=== PATIENT | female | born 1955 | race Caucasian/White ===

== ENCOUNTER 2021-12-01 20:23 | Emergency (ER) | payer OTHER ==
[~2021-12-01] VITALS: Ht 160 cm; Wt 114.3 kg
[~2021-12-01 20:23] MED LIST changes: -K-Dur20 MEQ PO; -Ondansetron Odt8 MG MM
[2021-12-01 21:05] LABS: BASOPHILS ABSOLUTE AUTO 0.05 K/mm3 (0.00-0.23); BASOPHILS PERCENT AUTO 0 % (0-2); EOSINOPHILS ABSOLUTE AUTO 0.09 K/mm3 (0.00-0.68); EOSINOPHILS PERCENT AUTO 1 % (0-6); IMMATURE GRAN ABSOLUTE AUTO 0.06 K/mm3 (0.00-0.10); IMMATURE GRAN PERCENT AUTO 1 % (0-1); LYMPHOCYTES ABSOLUTE AUTO 1.63 K/mm3 (0.84-5.20); LYMPHOCYTES PERCENT AUTO 15 % (21-46); MONOCYTES ABSOLUTE AUTO 0.65 K/mm3 (0.16-1.47); MONOCYTES PERCENT AUTO 6 % (4-13); Mean Corpuscular HGB 27.5 pg (26.0-34.0); Mean Corpuscular HGB Conc 34.2 g/dL (31.5-36.5); Mean Corpuscular Volume 81 fL (80-100); Mean Platelet Volume 10.2 fL (9.1-12.4); NEUTROPHILS PERCENT AUTO 78 % (41-73); Platelet Count 318 K/mm3 (150-400); RDW Coefficient Variation 14.3 % (11.7-14.2); RDW Standard Deviation 41.7 fL (35.1-46.3); Red Blood Cell Count 4.72 M/mm3 (3.80-5.20); White Blood Cell Count 11.28 K/mm3 (4.00-11.30)
[2021-12-01 21:27] LABS: Alanine Aminotransfer (ALT/SGP 82 U/L (12-78); Albumin, Blood 3.3 g/dL (3.4-5.0); Albumin/Globulin Ratio 0.8 (0.8-1.8); Alk Phos 74 U/L (50-136); Anion Gap 16 mmol/L (6-16); Aspartate Aminotrans (AST/SGOT 42 U/L (12-37); Bilirubin, Total 0.5 mg/dL (0.1-1.0); Blood Urea Nitrogen 12 mg/dL (8-24); Bun/Creatinine Ratio 6.6 (12.0-20.0); CO2, Blood 24 mmol/L (21-32); Calcium, Blood 8.8 mg/dL (8.5-10.1); Chloride, Blood 83 mmol/L (98-108); Creatinine, Blood 1.82 mg/dL (0.40-1.00); Globulin, Blood 3.9 g/dL (2.2-4.0); Glomerular Filtration Rate 28 (60-); Glucose, Blood 107 mg/dL (70-99); Potassium, Blood 2.6 mmol/L (3.5-5.5); Sodium, Blood 123 mmol/L (136-145); Total Protein, Blood 7.2 g/dL (6.4-8.2); Troponin I <0.015 ng/mL (0.000-0.040)
[2021-12-01 22:29] LABS: Magnesium, Blood 1.7 mg/dL (1.6-2.4)
[2021-12-01 23:08] LABS: Source, Urine Clean Catch
[2021-12-01 23:19] LABS: Influenza A, PCR NEGATIVE (NEGATIVE); Influenza B, PCR NEGATIVE (NEGATIVE); Resp Syncytial Virus, PCR NEGATIVE (NEGATIVE); SARS-Cov-2 (COVID-19) PCR, MMC NEGATIVE (NEGATIVE)
[2021-12-01 23:32] LABS: Appearance, Urine Hazy (Clear); Bilirubin, Urine Neg (Neg); Blood, Urine 1+ (Neg); Color, Urine Yellow (P-Yellow); Glucose Qualitative, Urine Neg (Neg); Ketones, Urine Neg (Neg); Leukocyte Esterase, Urine 2+ (Neg); Nitrite, Urine Neg (Neg); Protein, Urine 2+ (Neg); Specific Gravity, Urine 1.025 (1.003-1.022); Urobilinogen, Urine NORM (Normal)
[2021-12-01 23:36] LABS: Amorphous Mod (0-Heavy); Bacteria Few /hpf; Red Blood Cells, Urine 0-2 /hpf (0-2); Squamous Epithelial Cells Few /hpf (Few)
[2021-12-02] MEDS ORDERED: K-Dur20 MEQ PO (01:41)
[2021-12-02] MEDS ORDERED: Ondansetron Odt8 MG MM (01:41)
== END 2021-12-02 02:00 | disposition home or self-care (01) ==
LOC: ER 20:23
PROVIDERS: Emergency Medicine; Physician Assistant
DX: K43.9 Ventral hernia without obstruction or gangrene (principal); E87.6 Hypokalemia; Z88.0 Allergy status to penicillin; Z88.5 Allergy status to narcotic agent; E11.9 Type 2 diabetes mellitus without complications; F17.290 Nicotine dependence, other tobacco product, uncomplicated
CPT/HCPCS: 0241U; 36415; 80053; 81001; 83605; 83735; 84484; 85025; 87086; 93005; 93010; 96365; 96366; 96375; 96376; 99284-25; A9270; J2405; J7030

== ENCOUNTER → 2021-12-01 | Outpatient (CLI) | payer OTHER ==
[~2021-12-01] MED LIST: K-Dur20 MEQ PO; OMEP20ER PO; Ondansetron Odt8 MG MM; Zofran4 MG PO
[2021-12-01 17:46] LABS: BASOPHILS ABSOLUTE AUTO 0.07 K/mm3 (0.00-0.23); BASOPHILS PERCENT AUTO 1 % (0-2); EOSINOPHILS ABSOLUTE AUTO 0.09 K/mm3 (0.00-0.68); EOSINOPHILS PERCENT AUTO 1 % (0-6); Hematocrit 40.1 % (33.0-51.0); IMMATURE GRAN ABSOLUTE AUTO 0.07 K/mm3 (0.00-0.10); IMMATURE GRAN PERCENT AUTO 1 % (0-1); LYMPHOCYTES ABSOLUTE AUTO 1.55 K/mm3 (0.84-5.20); LYMPHOCYTES PERCENT AUTO 12 % (21-46); MONOCYTES ABSOLUTE AUTO 0.73 K/mm3 (0.16-1.47); MONOCYTES PERCENT AUTO 6 % (4-13); Mean Corpuscular HGB 28.2 pg (26.0-34.0); Mean Corpuscular HGB Conc 34.9 g/dL (31.5-36.5); Mean Corpuscular Volume 81 fL (80-100); Mean Platelet Volume 10.3 fL (9.1-12.4); NEUTROPHILS ABSOLUTE AUTO 10.03 K/mm3 (1.96-9.15); NEUTROPHILS PERCENT AUTO 80 % (41-73); Platelet Count 338 K/mm3 (150-400); RDW Coefficient Variation 14.6 % (11.7-14.2); RDW Standard Deviation 42.3 fL (35.1-46.3); Red Blood Cell Count 4.96 M/mm3 (3.80-5.20); White Blood Cell Count 12.54 K/mm3 (4.00-11.30)
[2021-12-01 17:51] LABS: Bun/Creatinine Ratio 6.4 (12.0-20.0); Calcium, Blood 9.9 mg/dL (8.5-10.1); Creatinine, Blood 2.04 mg/dL (0.40-1.00); Potassium, Blood 2.8 mmol/L (3.5-5.5)
== END | disposition home or self-care (01) ==
LOC: LAB SHORT 17:36
PROVIDERS: Physician Assistant Surgical
DX: R42 Dizziness and giddiness (principal); R53.83 Other fatigue
CPT/HCPCS: 80048; 84443; 85025

== ENCOUNTER 2021-12-07 06:57 | Inpatient (IN) | payer OTHER ==
[~2021-12-07] VITALS: Ht 160 cm; Wt 117.6 kg
[~2021-12-07 06:57] MED LIST changes: +K-Dur20 MEQ PO; +Ondansetron Odt8 MG MM
[2021-12-07] MEDS ORDERED: ROSUVASTATIN CA10 MG PO (07:29)
[2021-12-07] MEDS ORDERED: METFORMIN HCL500 M2 PO (07:29)
[2021-12-07] MEDS ORDERED: ZOLOFT50 MG PO (07:29)
[2021-12-07] MEDS ORDERED: Ventolin/Prove6.7 GM INH (07:29)
[2021-12-07] MEDS ORDERED: PLAVIX75 MG PO (07:30)
[2021-12-07] MEDS ORDERED: TRIA50 PO (07:30)
[2021-12-07 07:51] LABS: BASOPHILS ABSOLUTE AUTO 0.06 K/mm3 (0.00-0.23); BASOPHILS PERCENT AUTO 1 % (0-2); EOSINOPHILS ABSOLUTE AUTO 0.15 K/mm3 (0.00-0.68); EOSINOPHILS PERCENT AUTO 2 % (0-6); Hemoglobin 12.6 g/dL (11.5-16.0); IMMATURE GRAN ABSOLUTE AUTO 0.05 K/mm3 (0.00-0.10); IMMATURE GRAN PERCENT AUTO 1 % (0-1); LYMPHOCYTES ABSOLUTE AUTO 1.38 K/mm3 (0.84-5.20); LYMPHOCYTES PERCENT AUTO 17 % (21-46); MONOCYTES ABSOLUTE AUTO 0.68 K/mm3 (0.16-1.47); MONOCYTES PERCENT AUTO 9 % (4-13); Mean Corpuscular HGB 27.5 pg (26.0-34.0); Mean Corpuscular HGB Conc 33.2 g/dL (31.5-36.5); Mean Corpuscular Volume 83 fL (80-100); Mean Platelet Volume 9.9 fL (9.1-12.4); NEUTROPHILS ABSOLUTE AUTO 5.69 K/mm3 (1.96-9.15); NEUTROPHILS PERCENT AUTO 71 % (41-73); Platelet Count 279 K/mm3 (150-400); RDW Coefficient Variation 15.3 % (11.7-14.2); RDW Standard Deviation 46.5 fL (35.1-46.3); Red Blood Cell Count 4.58 M/mm3 (3.80-5.20); White Blood Cell Count 8.01 K/mm3 (4.00-11.30)
[2021-12-07 08:24] LABS: Albumin, Blood 3.1 g/dL (3.4-5.0); Albumin/Globulin Ratio 0.9 (0.8-1.8); Bilirubin, Total 0.4 mg/dL (0.1-1.0); Bun/Creatinine Ratio 4.2 (12.0-20.0); Calcium, Blood 9.1 mg/dL (8.5-10.1); Creatinine, Blood 2.62 mg/dL (0.40-1.00); Globulin, Blood 3.6 g/dL (2.2-4.0); Potassium, Blood 3.1 mmol/L (3.5-5.5); Total Protein, Blood 6.7 g/dL (6.4-8.2)
[2021-12-07 08:56] LABS: Influenza A, PCR NEGATIVE (NEGATIVE); Influenza B, PCR NEGATIVE (NEGATIVE); Resp Syncytial Virus, PCR NEGATIVE (NEGATIVE); SARS-Cov-2 (COVID-19) PCR, MMC NEGATIVE (NEGATIVE)
[2021-12-07 09:27] LABS: Source, Urine Clean Catch
[2021-12-07 09:33] LABS: Appearance, Urine Clear (Clear); Bilirubin, Urine Neg (Neg); Blood, Urine Neg (Neg); Color, Urine Yellow (P-Yellow); Glucose Qualitative, Urine Neg (Neg); Ketones, Urine Neg (Neg); Leukocyte Esterase, Urine Neg (Neg); Nitrite, Urine Neg (Neg); Protein, Urine Neg (Neg); Urobilinogen, Urine NORM (Normal); pH, Urine 6.5 (5.0-8.0)
--- NOTE | 2021-12-07 15:00 | NUR ---
PT ARRIVED TO FLOOR BY GURNEY FROM ED AND ABLE TO STAND AND AMBULATE TO BATHROOM INDEPENDENTLY AND WAS STEADY ON FEET. ANSWERING QUESTIONS FOR HISTORY APPROPRIATELY. DENIES NAUSEA OR PAIN BUT FEELS WEAK AND TIRED.
--- NOTE | 2021-12-07 18:48 | NUR ---
SHIFT SUMMARY PT INDEPENDENT IN ROOM. HAS BEEN SLEEPING MOSTLY SINCE ARRIVAL REPORTING SHE HAS BEEN UP SINCE 0600 AND SHE IS EXHAUSTED. HAS HAD NO PAIN SINCE ARRIVAL. WILL NOTIFY ONCOMING SHIFT OF CURRENT CONDITION.
--- NOTE | 2021-12-08 05:28 | NUR ---
SHIFT SUMMARY 66 YR F ADMITTED ON 12/01/21 FOR [facility]. FULL CODE. 2-3+ PITTING EDEMA IN BILATERAL LOWER EXTREMITIES. SHE HAS HAD A POOR APPETITE FOR THE LAST COUPLE OF DAYS. SHE IS INDEPENDANT IN THE ROOM BUT IS SOMEWAHT WEAK. DURING THIS SHIFT AN ULTRASOUND WAS PERFORMED ON PT'S KIDNEYS AND BLADDER. PT SLEPT NEARLY ALL OF THIS SHIFT SO THIS NURSE HAD VERY LITTLE INTERACTION WITH HER.
[2021-12-08 05:44] LABS: BASOPHILS ABSOLUTE AUTO 0.04 K/mm3 (0.00-0.23); BASOPHILS PERCENT AUTO 1 % (0-2); EOSINOPHILS ABSOLUTE AUTO 0.23 K/mm3 (0.00-0.68); EOSINOPHILS PERCENT AUTO 3 % (0-6); Hemoglobin 12.5 g/dL (11.5-16.0); IMMATURE GRAN ABSOLUTE AUTO 0.05 K/mm3 (0.00-0.10); IMMATURE GRAN PERCENT AUTO 1 % (0-1); LYMPHOCYTES ABSOLUTE AUTO 1.05 K/mm3 (0.84-5.20); LYMPHOCYTES PERCENT AUTO 15 % (21-46); MONOCYTES ABSOLUTE AUTO 0.59 K/mm3 (0.16-1.47); MONOCYTES PERCENT AUTO 9 % (4-13); Mean Corpuscular HGB 27.5 pg (26.0-34.0); Mean Corpuscular HGB Conc 32.1 g/dL (31.5-36.5); Mean Corpuscular Volume 86 fL (80-100); Mean Platelet Volume 10.1 fL (9.1-12.4); NEUTROPHILS ABSOLUTE AUTO 4.92 K/mm3 (1.96-9.15); NEUTROPHILS PERCENT AUTO 72 % (41-73); Platelet Count 265 K/mm3 (150-400); RDW Coefficient Variation 15.9 % (11.7-14.2); RDW Standard Deviation 49.9 fL (35.1-46.3); Red Blood Cell Count 4.54 M/mm3 (3.80-5.20); White Blood Cell Count 6.88 K/mm3 (4.00-11.30)
[2021-12-08 06:10] LABS: Albumin, Blood 2.9 g/dL (3.4-5.0); Anion Gap 9 mmol/L (6-16); Blood Urea Nitrogen 13 mg/dL (8-24); Bun/Creatinine Ratio 5.3 (12.0-20.0); CO2, Blood 26 mmol/L (21-32); Calcium, Blood 9.2 mg/dL (8.5-10.1); Chloride, Blood 97 mmol/L (98-108); Creatinine, Blood 2.43 mg/dL (0.40-1.00); Glomerular Filtration Rate 20 (60-); Glucose, Blood 108 mg/dL (70-99); Phosphorus, Blood 2.6 mg/dL (2.5-4.9); Potassium, Blood 3.1 mmol/L (3.5-5.5); Sodium, Blood 132 mmol/L (136-145)
[2021-12-08 06:38] LABS: Osmolality, Serum 279 mos/KG (275-300)
[2021-12-08 10:40] LABS: Source, Urine Clean Catch
[2021-12-08 11:15] LABS: Bilirubin, Urine Neg (Neg); Blood, Urine Neg (Neg); Glucose Qualitative, Urine Neg (Neg); Ketones, Urine Neg (Neg); Leukocyte Esterase, Urine Neg (Neg); Nitrite, Urine Neg (Neg); Protein, Urine Neg (Neg); Specific Gravity, Urine 1.005 (1.003-1.022); Urobilinogen, Urine NORM (Normal)
[2021-12-08 11:18] LABS: Appearance, Urine Clear (Clear); Color, Urine Yellow (P-Yellow)
[2021-12-08 17:57] LABS: Anion Gap 7 mmol/L (6-16); Blood Urea Nitrogen 14 mg/dL (8-24); Bun/Creatinine Ratio 5.7 (12.0-20.0); CO2, Blood 26 mmol/L (21-32); Calcium, Blood 8.9 mg/dL (8.5-10.1); Chloride, Blood 101 mmol/L (98-108); Creatinine, Blood 2.45 mg/dL (0.40-1.00); Glomerular Filtration Rate 20 (60-); Glucose, Blood 104 mg/dL (70-99); Phosphorus, Blood 1.7 mg/dL (2.5-4.9); Potassium, Blood 3.6 mmol/L (3.5-5.5); Sodium, Blood 134 mmol/L (136-145)
--- NOTE | 2021-12-08 18:25 | NUR ---
SHIFT SUMMARY; PATIENT HAD UNEVENTFUL DAY. NO ACUTE CHANGES IN CONDITION ARE NOTED. DID COME TO SEE THIS PATIENT AND MADE A FEW CHANGES TO LAB ORDERS AND TO FLUIDS. PATIENT NOW ON 100ML/HR OF NS. PATIENT IS AO X 4 AND VITAL SIGNS ARE WNL. SHE IS ABLE TO AMBULATE TO AND FROM BATHROOM WITHOUT ASSIST. PATIENT DID AMBULATE IN REID WITH PT TODAY AND NADN. WILL REMAIN AVAILABLE FOR THIS PATIENTN FOR ANY WANTS OR NEEDS THAT COME UP PRIOR TO SHIFT CHANGE.
--- NOTE | 2021-12-09 04:50 | NUR ---
SHIFT SUMMARY 66 YRF ADMITTED ON 12/01/21 FOR [facility]. PT HAS BEEN UP IN THE CHAIR FOR SEVERAL HOURSAND AND IS ABLE TO AMBULATE TO THE BATHROOM INDEPENDANTLY. LAB RESULTS WERE RELAYED TO DR. AMAYA PER HIS REQUEST. PT HAS AN UPBEAT ATTITUDE AND IS PLEASANT AND COOPERATIVE. THIS NURSE INQUIRED W/ CHARGE NURSE ABOUT GETTING A POWERGLIDE PUT IN PT. NOONE IS AVAILABLE THIS SHIFT BUT THE INFO WILL BE PASSED ALONG TO DAYSHIFT CHARGE.
[2021-12-09 05:15] LABS: BASOPHILS ABSOLUTE AUTO 0.05 K/mm3 (0.00-0.23); BASOPHILS PERCENT AUTO 1 % (0-2); EOSINOPHILS ABSOLUTE AUTO 0.23 K/mm3 (0.00-0.68); EOSINOPHILS PERCENT AUTO 4 % (0-6); Hematocrit 37.9 % (33.0-51.0); Hemoglobin 12.2 g/dL (11.5-16.0); IMMATURE GRAN ABSOLUTE AUTO 0.05 K/mm3 (0.00-0.10); IMMATURE GRAN PERCENT AUTO 1 % (0-1); LYMPHOCYTES ABSOLUTE AUTO 1.23 K/mm3 (0.84-5.20); LYMPHOCYTES PERCENT AUTO 19 % (21-46); MONOCYTES ABSOLUTE AUTO 0.58 K/mm3 (0.16-1.47); MONOCYTES PERCENT AUTO 9 % (4-13); Mean Corpuscular HGB 27.7 pg (26.0-34.0); Mean Corpuscular HGB Conc 32.2 g/dL (31.5-36.5); Mean Corpuscular Volume 86 fL (80-100); Mean Platelet Volume 9.8 fL (9.1-12.4); NEUTROPHILS PERCENT AUTO 68 % (41-73); Platelet Count 269 K/mm3 (150-400); RDW Coefficient Variation 16.2 % (11.7-14.2); RDW Standard Deviation 50.6 fL (35.1-46.3); White Blood Cell Count 6.64 K/mm3 (4.00-11.30)
[2021-12-09 05:53] LABS: Anion Gap 9 mmol/L (6-16); Blood Urea Nitrogen 12 mg/dL (8-24); Bun/Creatinine Ratio 5.2 (12.0-20.0); CO2, Blood 26 mmol/L (21-32); Calcium, Blood 8.9 mg/dL (8.5-10.1); Chloride, Blood 102 mmol/L (98-108); Creatinine, Blood 2.33 mg/dL (0.40-1.00); Glomerular Filtration Rate 21 (60-); Glucose, Blood 111 mg/dL (70-99); Potassium, Blood 3.2 mmol/L (3.5-5.5); Sodium, Blood 137 mmol/L (136-145); Thyroid Stimulating Hormone 0.329 uIU/mL (0.360-4.800); Uric Acid, Blood 6.5 mg/dL (2.6-6.0)
--- NOTE | 2021-12-09 10:12 | NUR ---
Initial Interview with [facility] Community Group Therapy Counselor 1. Who did you speak with? Spoke with patient 2. What is the patient's prior level of functions? Patient lives independently with her hSaun. 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 They live in a two story home. Rosa Maria is able to navigate stairs without any problem. She uses a cane when she feels her balance may be in question, like walking up and down a hill. She is independent and able to perform ADLs without assistance. She has a daughter who lives in [place] and speaks with once a week. She has two sons who live locally (Abdirahman and Carol). She also has two siblings who live near and provide support when needed. 3. 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 Does patient still drive? Yes 5. POA/PCP/NOK: NOK: Shaun [phone]/PCP [facility] Dr. Jocelyn Dillon. 6. Discharge goals: TBD: no preference on Home Health or SNF. -Medication Management: self-management -Preferred Pharmacy: [facility] -Housekeeping need: patient's assists with cooking and cleaning the home 7. List barriers to discharge: None known at this time 8. Discharge Plan: TBD/awaiting nephrology consult 9. PCP Follow up appointment: Will be scheduled within seven calendar days of discharge 10. Other Notes: patient is not a .
--- NOTE | 2021-12-09 17:44 | NUR ---
SHIFT SUMMARY; PATIENT DID WORK WITH PT OT TODAY AND ALSO HAD A SPEECH THERAPY EVAL. NO CHANGES ARE MADE OTHER THAN TO ENCOURAGE PATEINT TO DRINK WATER WHEN TAKING HER MEDICATIONS. SHE IS TO ALSO BE ENCOURAGED TO DO ORAL CARE TID AND SIT UP FOR MEALS.. FLUIDS ARE NOW AT 50ML PER HOUR PER VERBAL ORDER. PATIENT RECEIVED A POWER GLIDE TODAY SINCE SHE IS RECEIVING SO MANY IV MEDICATIONS AND IS HAVING MUCH DIFFICULTY TOLERATING THEM THROUGH THE IV'S IN HER HANDS. PATIENT IS AO X 4 TODAY AND HAS PLEASANT AFFECT. HER VITAL SIGNS ARE WNL AND PAITENT IS COOPERATIVE WITH CARE AND VERY APPRECIATIVE OF STAFF. SHE KEEPS HER FAMILY UPDATED VIA TELEPHONE AND HAS NO PHYSICAL COMPLAINTS THROUGHOUT THE DAY. PATIENT IS ABLE TO AMBULATE TO AND FROM RESTROOM WITHOUT ASSIST. WILL REMAIN AVAILABLE FOR THIS PATIENT FOR ANY WANTS OR NEEDS THAT COME UP PRIOR TO SHIFT CHANGE.
--- NOTE | 2021-12-10 04:44 | NUR ---
SHIFT SUMMARY A/O, ABLE TO MAKE NEEDS KNOWN. COOPERATIVE WITH CARE. CALLS AND ANSWERS QUESTIONS APPROPRIATELY. NO C/O PAIN/DISCOMFORT. UP INDEPENDENTLY T/O THE DAY. APPEARED TO REST MUCH OF THE NIGHT. REMAINS ON IV FLUIDS 50 ML/HR WITHOUT COMPLICATION. NO ACUTE CHANGES NOTED OVERNIGHT. BED REMAINS IN LOWEST POSITION. CALL LIGHT AND BELONGINGS WITHIN REACH. REPORT TO ONCOMING RN.
[2021-12-10 05:35] LABS: BASOPHILS ABSOLUTE AUTO 0.04 K/mm3 (0.00-0.23); BASOPHILS PERCENT AUTO 1 % (0-2); EOSINOPHILS ABSOLUTE AUTO 0.24 K/mm3 (0.00-0.68); EOSINOPHILS PERCENT AUTO 4 % (0-6); Hematocrit 36.9 % (33.0-51.0); Hemoglobin 11.8 g/dL (11.5-16.0); IMMATURE GRAN ABSOLUTE AUTO 0.05 K/mm3 (0.00-0.10); IMMATURE GRAN PERCENT AUTO 1 % (0-1); LYMPHOCYTES ABSOLUTE AUTO 1.13 K/mm3 (0.84-5.20); LYMPHOCYTES PERCENT AUTO 18 % (21-46); MONOCYTES ABSOLUTE AUTO 0.53 K/mm3 (0.16-1.47); MONOCYTES PERCENT AUTO 8 % (4-13); Mean Corpuscular HGB 27.9 pg (26.0-34.0); Mean Corpuscular Volume 87 fL (80-100); Mean Platelet Volume 10.1 fL (9.1-12.4); NEUTROPHILS ABSOLUTE AUTO 4.29 K/mm3 (1.96-9.15); NEUTROPHILS PERCENT AUTO 68 % (41-73); Platelet Count 267 K/mm3 (150-400); RDW Coefficient Variation 16.6 % (11.7-14.2); RDW Standard Deviation 52.6 fL (35.1-46.3); Red Blood Cell Count 4.23 M/mm3 (3.80-5.20); White Blood Cell Count 6.28 K/mm3 (4.00-11.30)
[2021-12-10 05:59] LABS: Albumin, Blood 2.8 g/dL (3.4-5.0); Anion Gap 7 mmol/L (6-16); Blood Urea Nitrogen 13 mg/dL (8-24); Bun/Creatinine Ratio 5.8 (12.0-20.0); CO2, Blood 26 mmol/L (21-32); Calcium, Blood 8.9 mg/dL (8.5-10.1); Chloride, Blood 106 mmol/L (98-108); Creatinine, Blood 2.25 mg/dL (0.40-1.00); Glomerular Filtration Rate 22 (60-); Glucose, Blood 110 mg/dL (70-99); Phosphorus, Blood 2.9 mg/dL (2.5-4.9); Potassium, Blood 3.3 mmol/L (3.5-5.5); Sodium, Blood 139 mmol/L (136-145)
--- NOTE | 2021-12-10 17:27 | NUR ---
PT REMAINS A/O, INDEPENDENT IN ROOM, PLEASANT AND COOPERATIVE WITH CARE. HER KCL LEVEL WAS 3.3 THIS MORNING, 20 MEQ IV POTASSIUM GIVEN AND IVF DISCONTINUED PER DR AMAYA. NO C/O OF PAIN OR OTHER DISCOMFORT, NO ACUTE CHANGES NOTED THIS SHIFT, WILL CONTINUE TO MONITOR AND REPORT TO ONCOMING RN.
--- NOTE | 2021-12-11 03:09 | NUR ---
SHIFT SUMMARY PATIENT HAD NO ACUTE CHANGES OBSERVED. AXOX 4 AND INDEPENDENT IN ROOM. DENIES PAIN, SOB, AND N/V. POWERGIDE NARCISA INTACT. VSS/AFEBRILE. PATIENT WATCHED TV FIRST PART OF THE SHIFT. CALL LIGHT IN REACH. BED IN LOWEST POSITION. WILL CONTINUE TO MONITOR UNTIL DAY SHIFT NURSE ASSUMES CARE.
[2021-12-11 07:12] LABS: BASOPHILS ABSOLUTE AUTO 0.05 K/mm3 (0.00-0.23); BASOPHILS PERCENT AUTO 1 % (0-2); EOSINOPHILS ABSOLUTE AUTO 0.22 K/mm3 (0.00-0.68); EOSINOPHILS PERCENT AUTO 4 % (0-6); Hematocrit 36.6 % (33.0-51.0); Hemoglobin 11.6 g/dL (11.5-16.0); IMMATURE GRAN ABSOLUTE AUTO 0.02 K/mm3 (0.00-0.10); IMMATURE GRAN PERCENT AUTO 0 % (0-1); LYMPHOCYTES ABSOLUTE AUTO 1.17 K/mm3 (0.84-5.20); LYMPHOCYTES PERCENT AUTO 19 % (21-46); MONOCYTES ABSOLUTE AUTO 0.59 K/mm3 (0.16-1.47); MONOCYTES PERCENT AUTO 10 % (4-13); Mean Corpuscular HGB Conc 31.7 g/dL (31.5-36.5); Mean Corpuscular Volume 88 fL (80-100); Mean Platelet Volume 10.2 fL (9.1-12.4); NEUTROPHILS ABSOLUTE AUTO 4.09 K/mm3 (1.96-9.15); NEUTROPHILS PERCENT AUTO 67 % (41-73); Platelet Count 275 K/mm3 (150-400); RDW Coefficient Variation 16.8 % (11.7-14.2); Red Blood Cell Count 4.15 M/mm3 (3.80-5.20); White Blood Cell Count 6.14 K/mm3 (4.00-11.30)
[2021-12-11 07:27] LABS: Albumin, Blood 2.7 g/dL (3.4-5.0); Anion Gap 8 mmol/L (6-16); Blood Urea Nitrogen 11 mg/dL (8-24); CO2, Blood 25 mmol/L (21-32); Chloride, Blood 107 mmol/L (98-108); Creatinine, Blood 2.18 mg/dL (0.40-1.00); Glomerular Filtration Rate 22 (60-); Glucose, Blood 97 mg/dL (70-99); Phosphorus, Blood 2.9 mg/dL (2.5-4.9); Potassium, Blood 3.3 mmol/L (3.5-5.5); Sodium, Blood 140 mmol/L (136-145)
--- NOTE | 2021-12-11 14:54 | NUR ---
PATIENT DISCHARGED TO HOME VIA FAMILY MEMBER. POWERGLIDE IV REMOVED WITHOUT INCIDENT. VERBALIZED UNDERSTANDING OF D/C INSTRUCTIONS. NO NEW MEDICATIONS WERE ORDERED. OFF UNIT VIA W/C AT 1238. NO PERSONAL BELONGINGS LEFT BEHIND IN ROOM.
--- NOTE | 2021-12-12 08:46 | NUR ---
Per Dr. Rich discharge appropriate. Patient does not oppose discharge. Patient discharged home to residence. Date of discharge: 12/11/2021 Date of admission: 12/07/2021 Provisional diagnosis at time of admission: Acute kidney failure Final Diagnosis at time of discharge: Acute kidney failure Location: Patient is discharged home to his residence: [address] [place] [address] Transportation provided by: Family DME Ordered: None needed Follow-ups needed: [facility] will contact patient to schedule hospital follow-up with PCP Dr. Jocelyn Dillon MD Confirmed numbers: Patient: [phone] Provider/PCP: Dr. Jocelyn Dillon When: WITHIN 1 WEEK Specialty: N/A When: N/A Comment: No barriers to discharge. Patient has a strong support network.
[2021-12-15 07:11] LABS: ALDOS/RENIN RATIO 11.1 (0.0-30.0); ALDOSTERONE 22.7 ng/dL (0.0-30.0)
== END 2021-12-11 12:38 | disposition home or self-care (01) | DRG 683 ==
LOC: ER 06:57 → MEDS 12:48
PROVIDERS: Internal Medicine Nephrology; Student in an Organized Health Care Education/Training Program; ADMIT Family Medicine
DX: N17.9 Acute kidney failure, unspecified (principal); E87.1 Hypo-osmolality and hyponatremia; Z68.41 Body mass index [BMI] 40.0-44.9, adult; E11.22 Type 2 diabetes mellitus with diabetic chronic kidney disease; N18.9 Chronic kidney disease, unspecified; E78.5 Hyperlipidemia, unspecified; I25.10 Atherosclerotic heart disease of native coronary artery without angina pectoris; F32.9 Major depressive disorder, single episode, unspecified; F41.1 Generalized anxiety disorder; Z88.0 Allergy status to penicillin; Z88.5 Allergy status to narcotic agent; Z79.899 Other long term (current) drug therapy; E66.9 Obesity, unspecified; Z79.84 Long term (current) use of oral hypoglycemic drugs; E87.6 Hypokalemia; E88.09 Other disorders of plasma-protein metabolism, not elsewhere classified; E86.9 Volume depletion, unspecified; Z20.822 Contact with and (suspected) exposure to COVID-19; Z53.29 Procedure and treatment not carried out because of patient's decision for other reasons; Z90.710 Acquired absence of both cervix and uterus; Z90.722 Acquired absence of ovaries, bilateral
CPT/HCPCS: 0241U; 36415; 71045; 76770; 80053; 80069; 81003; 82088; 82330; 82533; 82570; 82947; 83735; 83930; 83935; 84156; 84244; 84300; 84443; 84484; 84550; 85025; 92610; 93005; 93010; 94760; 96365; 96366; 96368; 97116; 97161; 97165; 97530; 99285-25; A9270; C1751; J1644; J3475; J7030; J7060

== ENCOUNTER 2022-06-12 07:37 | Day surgery (SDC) | payer OTHER ==
[~2022-06-12] VITALS: Ht 162.6 cm; Wt 96.6 kg
[~2022-06-12 07:37] MED LIST changes: +METFORMIN HCL500 M2 PO; +PLAVIX75 MG PO; +ROSU10TA PO; +ROSUVASTATIN CA10 MG PO; +TRIA50 PO; +Ventolin/Prove6.7 GM INH; +ZOLOFT50 MG PO
[2022-06-12] MEDS ORDERED: PANT40 PO (07:59)
[2022-06-12] MEDS ORDERED: Bisoprolol Fumar5 MG PO (08:00)
[2022-06-12] MEDS ORDERED: POTASSIUM99 M3 PO (08:00)
--- NOTE | 2022-06-12 12:53 | NUR ---
PT UP AND DRESSED. R RADIAL SITE STABLE WITHOUT BLEEDING. TR BAND REMOVED WITH CATHETER INTACT. AREA CLEANSED AND CLOTH DOT PLACED, ARM BOARD IN PLACE AND PT INSTRUCTED TO LEAVE ON FOR 2 DAYS. SALINE LOCK REMOVED WITH CATHETER INTACT. DISCHARGE REVIEWED WITH PT AND FAMILY, BOTH VERBALIZE UNDERSTANDING OF INSTRUCTIONS.
== END 2022-06-12 12:50 | disposition home or self-care (01) ==
LOC: MHTC 07:37
PROC: 4A023N7 Measurement of Cardiac Sampling and Pressure, Left Heart, Percutaneous Approach (ICD-10-PCS; principal; 2022-06-12)
PROC: B2111ZZ Fluoroscopy of Multiple Coronary Arteries using Low Osmolar Contrast (ICD-10-PCS; principal; 2022-06-12)
DX: I25.10 Atherosclerotic heart disease of native coronary artery without angina pectoris (principal); J44.9 Chronic obstructive pulmonary disease, unspecified; E78.5 Hyperlipidemia, unspecified; I12.9 Hypertensive chronic kidney disease with stage 1 through stage 4 chronic kidney disease, or unspecified chronic kidney disease; N18.9 Chronic kidney disease, unspecified; E11.22 Type 2 diabetes mellitus with diabetic chronic kidney disease; Z88.6 Allergy status to analgesic agent; Z88.5 Allergy status to narcotic agent; Z88.0 Allergy status to penicillin; Z79.02 Long term (current) use of antithrombotics/antiplatelets; Z79.899 Other long term (current) drug therapy
CPT/HCPCS: 76937; 93458; 99152; 99153; C1769; C1887; C1894; J1644; J2250; J3010; J7030; J7040; Q9967

== ENCOUNTER 2023-05-07 08:57 | Inpatient (IN) | payer OTHER ==
[~2023-05-07] VITALS: Ht 160 cm; Wt 78.2 kg
[2023-05-07] VITALS (16 sets, daily range): BP systolic 117–146; BP diastolic 65–95
[~2023-05-07 08:57] MED LIST changes: +Bisoprolol Fumar5 MG PO; +MULVITA PO; +PANT40 PO; +POTASSIUM99 M3 PO
--- NOTE | 2023-05-07 09:50 | NUR ---
Ambulatory in Day Surgery Patient confirms NPO status and agrees with scheduled surgery. Pre-Op teaching done. Pt verbalizes understanding. History, Chart, Medications and Allergies reviewed before start of procedure.
--- NOTE | 2023-05-07 13:33 | NUR ---
ARRIVAL TO UNIT DROWSY. ASSESSMENT CHARTED. PLEASANT & COOPERATIVE. DENIES PAIN OR N/V. SIPS OF CLEAR LQ's OFFERED.
[2023-05-08 02:44] VITALS: BP 124/67
--- NOTE | 2023-05-08 05:57 | NUR ---
SHIFT SUMMARY PT A/O CURRENTLY PAIN FREE BUT STRUGGLING WITH NAUSEA, PT VOMITED ALL OF DINNER SO FOOD WAS TAKEN AWAY AND ICE CHIPS GIVEN DRAINS AND ABD WNL NO BLEEDING NOR DRAINAGE. GAVE MULTIPLE DOSES OF ZOFRAN FOR NAUSEA THEN I CALLED MD TO GET ALTERNATIVE. ASSISTED PT TO BEDSIDE CAMMODE TRANSFERED WITH MINIMAL ASSIST. PT STILL NAUSEAED BUT FALLS ALEEP QUICKLY AND IS NOT IN ANY DISTRESS.
[2023-05-08 07:38] VITALS: BP 104/56
[2023-05-08 09:42] VITALS: BP 98/65
--- NOTE | 2023-05-08 10:59 | NUR ---
CALL PLACED TO DR WASHINGTON AT 1055 REGARDING LOW BLOOD PRESSURE THIS MORNNING AND HR [phone]. HAD TO LEAVE MESSAGE ON MACHINE WITH REQUEST FOR CALL BACK. METOPROLOL BEING HELD UNTIL DIRECTOR OF ANESTHESIA SERVICES SPEAKS WITH DR WASHINGTON
[2023-05-08 15:51] VITALS: BP 105/52
[2023-05-08 19:19] VITALS: BP 109/75
--- NOTE | 2023-05-08 19:25 | NUR ---
SHIFT SUMMARY PATIENT WITH NO ACUTE EVENTS THROUGH SHIFT. NAUSEA DECREASING THROUGH DAY. PATIENT ATE DINNER WITH NO NAUSEA OR NEED FOR NAUSEA MEDICATION. PATIENT UP AD LAKESHA WITH HER IV POLE. BED IN LOW POSITION, CALL LIGHT IN REACH. PATIENT CALLS APPROPRIATELY
[2023-05-09 04:14] VITALS: BP 103/55
--- NOTE | 2023-05-09 06:17 | NUR ---
SHIFT SUMMARY POD2 HERNIA REPAIR. MIDLINE PAKO REMAINS C/D/I. CAMERON PUT OUT 10 MLS SS FLUID. PT SLEPT ON AND OFF T/O THE NIGHT. PT REPORTED NAUSEA ONCE T/O THE NIGHT RELATED TO A MIGRANE. NO EMESIS NOTED. PT MEDICATED FOR HEAD PAIN WITH PRN MEDICATION. OTHERWISE PT TOLLERATING PO INTAKE W/O N/V, AMBULATING IN HALLS INDEPENDENTLY, VOIDING. REPORTS PASSING SMALL AMOUNTS OF FLATTUS, NO STOOL. PLAN FOR PT TO D/C HME TODAY. THE PATIENT IS CURRENTLY RESTING, IN NO DISTRESS, CALL LIGHT IN REACH
[2023-05-09 07:21] VITALS: BP 102/58
[2023-05-09 08:49] VITALS: BP 102/60
[2023-05-09] MEDS ORDERED: OXAYDO5 M1 PO (12:21)
--- NOTE | 2023-05-09 14:44 | NUR ---
DISCHARGE SUMMARY PATIENT WITH NO ACUTE ISSUES TODAY. PASSING FLATUS, WALKING HALLS INDEPENDENT. STATES PAIN NEVER ABOVE 2, REFUSES OXYCODONE TODAY. PATIENT EDUCATION AND MEDICATION PACKETS PROVIDED AND EDUCATION GIVEN. EDUCATION ALSO PROVIDED ON FIRE PREVENTION WITHIN HOSPTIAL PATIENT LEFT MEDICAL FLOOR 05/09/23 AT 1342 WITH SON AND WHEELED TO HOSPITAL ENTRANCE BY RIMMA REMY. TRANSPORTING HOME BY SON IN PRIVATE VEHICLE.
== END 2023-05-09 13:58 | disposition home or self-care (01) | DRG 355 ==
LOC: SURS 08:57 → PRE IP 10:15 → MEDS 13:14 → ENPENDDIS 05-09 10:18 → MEDS 05-09 13:58
PROVIDERS: ADMIT Surgery
PROC: 0WUF0JZ Supplement Abdominal Wall with Synthetic Substitute, Open Approach (ICD-10-PCS; principal; 2023-05-07 10:15)
DX: K43.6 Other and unspecified ventral hernia with obstruction, without gangrene (principal); M19.90 Unspecified osteoarthritis, unspecified site; N18.31 Chronic kidney disease, stage 3a; J44.9 Chronic obstructive pulmonary disease, unspecified; E11.22 Type 2 diabetes mellitus with diabetic chronic kidney disease; E78.5 Hyperlipidemia, unspecified; E66.01 Morbid (severe) obesity due to excess calories; R11.2 Nausea with vomiting, unspecified; G44.40 Drug-induced headache, not elsewhere classified, not intractable; T41.1X5A Adverse effect of intravenous anesthetics, initial encounter; I12.9 Hypertensive chronic kidney disease with stage 1 through stage 4 chronic kidney disease, or unspecified chronic kidney disease; K27.9 Peptic ulcer, site unspecified, unspecified as acute or chronic, without hemorrhage or perforation; F17.290 Nicotine dependence, other tobacco product, uncomplicated; Z90.49 Acquired absence of other specified parts of digestive tract; Z90.710 Acquired absence of both cervix and uterus; Z90.89 Acquired absence of other organs; Z98.890 Other specified postprocedural states; Z88.6 Allergy status to analgesic agent; Z88.5 Allergy status to narcotic agent; Z88.0 Allergy status to penicillin; Z88.7 Allergy status to serum and vaccine; Z88.8 Allergy status to other drugs, medicaments and biological substances; Z85.42 Personal history of malignant neoplasm of other parts of uterus; Z68.30 Body mass index [BMI] 30.0-30.9, adult; Z79.899 Other long term (current) drug therapy
CPT/HCPCS: 82947; 94760; A9270; C1781; J0690; J1100; J2250; J2371; J2405; J2704; J2765; J3010; J7120